=== PATIENT | male | born 1970 | race Caucasian/White ===

== ENCOUNTER 2020-01-01 12:28 | Emergency (ER) | payer SELFPAY ==
[2020-01-01 13:02] LABS: #Basophils 0.1 thou/uL (0.0-0.2); #Eosinphils 0.3 thou/uL (0.0-0.7); #Lymphocytes 2.4 thou/uL (1.20-3.40); #Monocytes 0.5 thou/uL (0.11-0.59); #Neutrophils 6.8 thou/uL (1.40-6.50); %Basophils 1.4 % (0.0-1.0); %Eosinophils 2.8 % (0.0-10.0); %Lymphocytes 23.8 % (21.0-51.0); %Monocytes 5.2 % (0.0-10.0); %Neutrophils 66.8 % (42.0-75.0); Hemoglobin 15.3 g/dL (14.0-18.0); Mean Corpuscular HGB CONC 33.2 g/dL (32.0-36.0); Mean Corpuscular Volume 93.4 fL (78.0-98.0); Mean Platelet Volume 8.2 fL (7.4-10.4); Platelet Count 386 thou/uL (130-400); RBC Distribution Width 12.4 % (11.5-14.5); Red Blood Cell (RBC) Count 4.94 mill/uL (4.70-6.10); White Blood Cell (WBC) Count 10.1 thou/uL (4.8-10.8)
[2020-01-01] MEDS ORDERED: Hydrocortisone Sod Succ/PF 100 mg/2 ml Vial ONE (13:20)
[2020-01-01 13:26] LABS: ALT (SGPT) 22 U/L (8-55); AST (SGOT) 27 U/L (5-34); Albumin 4.7 g/dL (3.5-5.0); Alkaline Phosphatase 80 U/L (40-110); Anion Gap 14 mmol/L (10-20); BUN (Urea Nitrogen) 13 mg/dL (8.9-20.6); Bilirubin, Total 0.5 mg/dL (0.2-1.2); Calc. Creatinine Clearance 0 mL/min (70-130); Calcium 9.3 mg/dL (7.8-10.44); Carbon Dioxide 20 mmol/L (22-29); Chloride 107 mmol/L (98-107); Estimated GFR-MDRD Greater than 90; Globulin 3.3 g/dL (2.4-3.5); Glucose 109 mg/dL (70-105); Lipase 68 U/L (8-78); Potassium 4.5 mmol/L (3.5-5.1); Sodium 136 mmol/L (136-145)
[2020-01-01 13:26] LABS: Bilirubin Negative (Negative); Blood, Urine Negative (Negative); Clarity Clear (Clear); Glucose, Urine (Dipstick) Normal (Negative); Ketone, Urine Negative (Negative); Leukocyte Negative Leu/uL (Negative); Nitrite Negative (Negative); Protein, Urine (Dipstick) 20 mg/dL (Neg-Trace); Specific Gravity, Urine 1.025 (1.002-1.036); Urobilinogen Normal mg/dL (Less than 2)
[2020-01-01] MEDS ORDERED: Iopamidol-370 76% 500 ML 1 ML ONE (13:51)
[2020-01-01] MEDS ORDERED: Morphine 4 MG/ML VIAL ONE ×2 (13:59→15:28)
--- NOTE | 2020-01-01 14:16 | CT ---
CT OF THE ABDOMEN AND PELVIS WITH IV COTNRAST: INDICATION: Left-sided flank pain. COMPARISON: Noncontrast CT of the abdomen and pelvis dated 12/19/2019. FINDINGS: The lung bases are clear. No focal hepatic lesion is evident. The gallbladder, pancreas, adrenal glands, and spleen appear within normal limits. There is a stable 2.2 cm cyst seen within the mid right kidney. No hydronephrosis is demonstrated. No definite urete ral calculus is noted. There are mild vascular calcifications involving the abdominopelvic vasculature. No enlarged lymph nodes are evident. There are a few scattered colonic diverticula without evidence of active diverticulitis. There is a normal appendix in the right lower quadrant. The small bowel is of normal caliber. Bladder, rectum, and perirectal soft tissues are unremarkable appearing. No definite acute osseous abnormality is evident. IMPRESSION: 1. No definite acute abnormality demonstrated. 2. Right renal cyst. 3. Mild colonic diverticulosis without evidence of active diverticulitis. 4. Mild vascular calcification of the abdominopelvic vasculature. POS: [facility]
[2020-01-01] MEDS ORDERED: Ketorolac Tromethamine 30 MG/ML VIAL ONE (15:28)
== END 2020-01-01 16:21 | disposition home or self-care (01) ==
LOC: ERS 12:28
DX: R10.9 Unspecified abdominal pain (principal); I10 Essential (primary) hypertension; G43.909 Migraine, unspecified, not intractable, without status migrainosus; F17.210 Nicotine dependence, cigarettes, uncomplicated; Z79.899 Other long term (current) drug therapy
CPT/HCPCS: 74177; 80053; 81003; 83690; 85025; 87086; 96374; 96375; 96376; J1720; J1885; J2270; Q9967